=== PATIENT | female | born 1940 | race African-American/Black ===

== ENCOUNTER 2018-02-04 16:04 | Emergency (ER) | payer OTHER ==
[~2018-02-04] VITALS: Ht 165.1 cm; Wt 130.5 kg
[~2018-02-04 16:04] MED LIST: ALBU.5I INH; ALBU0.086 INH; CALC0.5C6 PO; COZA100T PO; FURO20 PO; GLIM4TAB PO; HYDR100T2 PO; LEVEMIR SQ; LEVO500T3 PO; NEBI20 PO; NOVOLOGP2 SQ; POTA-243 PO; PRED20 PO; SIMV20TA PO; ZAFI20TA PO
[2018-02-04 16:07] VITALS: BP 179/93; PULSE 93; RESP 16; TEMP 99.5; O2SAT 96
[2018-02-04] MEDS ORDERED: RANI150T PO (16:27)
[2018-02-04] MEDS ORDERED: TIZA4CAP3 PO (16:27)
[2018-02-04] MEDS ORDERED: CALC0.5C PO (16:27)
[2018-02-04] MEDS ORDERED: ASPI-516 CHEW (16:27)
[2018-02-04] MEDS ORDERED: HYDR-3801 PO (16:27)
[2018-02-04] MEDS ORDERED: FURO40TA PO (16:27)
[2018-02-04] MEDS ORDERED: ZAFI1TAB4 PO (16:27)
[2018-02-04] MEDS ORDERED: VENTAER INH (16:27)
[2018-02-04] MEDS ORDERED: BYST10TA2 PO (16:27)
[2018-02-04] MEDS ORDERED: HYDR50TA94 PO (16:27)
[2018-02-04] MEDS ORDERED: LORA0.5T PO (16:27)
[2018-02-04] MEDS ORDERED: PRAV80TA2 PO (16:27)
[2018-02-04] MEDS ORDERED: NORC5TAB PO (16:27)
[2018-02-04] MEDS ORDERED: LEVEMIR SQ ×2 (16:33→16:35)
--- NOTE | 2018-02-04 16:51 | PD ---
HPI Chief Complaint: Pain: Acute or Chronic Time Seen by Provider: 16:44 Travel History International Travel<30 days: No Contact w/Intl Traveler<30days: No Traveled to known affect area: No History of Present Illness HPI 77-year-old female presents emergency department complaining of right wrist pain for a couple of days. Says that she was getting out of bed pushing herself up when she developed this wrist pain. Patient says that the pain is worse with movement decreases with rest. Pain is nonradiating. She denies additional trauma to the area. Denies numbness or tingling of the wrist. PFSH Past Medical History Hx Anticoagulant Therapy: Yes (BABY ASA DAILY) Asthma: Yes Depression: Yes Cardiovascular Problems: Yes (HTN) High Cholesterol: Yes Congestive Heart Failure: Yes Diabetes: Yes Patient Takes Glucophage: No Diminished Hearing: No GERD: Yes Hypertension: Yes Tetanus Vaccination: > 5 Years Influenza Vaccination: Yes ?: Not Past Surgical History Appendectomy: Yes Section: Yes (x 2) Social History Alcohol Use: No Tobacco Use: No Substance Use: No Allergies-Medications (Allergen,Severity, Reaction): Coded Allergies: codeine (Unverified Allergy, Severe, SWELLING, 02/04/18) penicillin G (Unverified Allergy, Severe, HIVES, 02/04/18) Reported Meds & Prescriptions Reported Meds & Active Scripts Active Gabapentin 100 Mg Cap 100 Mg PO TID 5 Days Reported Levemir Inj (Insulin Detemir) 1,000 unit/ 10 ML Vial 40 Units SQ HS Do not mix with any other Insulin. Levemir Inj (Insulin Detemir) 1,000 unit/ 10 ML Vial 40 Units SQ Do not mix with any other Insulin. Edon (Hydrocodone-Acetaminophen) 5 Mg-325 Mg Tab 1 Tab PO Q6H PRN Tizanidine (Tizanidine HCl) 4 Mg Cap 4 Mg PO TID Lorazepam 0.5 Mg Tab 0.5 Mg PO Q8H PRN Ventolin Hfa 18 GM Inh (Albuterol Sulfate) 90 Mcg/Act Aer 2 Puff INH Q4-6H PRN Hydroxyzine HCl 50 Mg Tab 50 Mg PO QID PRN Furosemide 40 Mg Tab 40 Mg PO DAILY Zafirlukast 20 Mg Tab 20 Mg PO BIDAC Bystolic (Nebivolol) 10 Mg Tab 10 Mg PO BID Aspirin 81 Mg Chew 81 Mg CHEW DAILY Hydralazine (Hydralazine HCl) 100 Mg Tab 100 Mg PO TID Take with meals Ranitidine (Ranitidine HCl) 150 Mg Tab 150 Mg PO DAILY Calcitriol 0.5 Mcg Cap 0.5 Mcg PO DAILY Pravastatin 80 Mg Tab 80 Mg PO HS Review of Systems Except as stated in HPI: all other systems reviewed are Neg Physical Exam Narrative GENERAL: Well-nourished, well-developed patient, in NAD SKIN: Focused skin assessment warm/dry. No rashes or lesions. HEAD: Normocephalic. Atraumatic. EYES: No scleral icterus. No injection or drainage. THROAT: Airway is patent. NECK: Supple, trachea midline. No JVD or lymphadenopathy. No meningismus. CARDIOVASCULAR: Regular rate and rhythm without murmurs, gallops, or rubs. RESPIRATORY: Breath sounds equal bilaterally. No accessory muscle use. No wheezes, rales, or rhonchi MUSCULOSKELETAL: No cyanosis, or edema. Right upper extremity-tenderness to palpation from the right wrist to the fingertips. No obvious deformities. Patient has difficulty with rotation of the forearm secondary to the pain. Neurovascular intact. No obvious deformities. The hand is slightly edematous when compared to the left. No evidence of cellulitis present. BACK: Nontender without obvious deformity. No CVA tenderness. Data Data Last Documented VS Vital Signs Date Time Temp Pulse Resp B/P (MAP) Pulse Ox O2 Delivery O2 Flow Rate FiO2 02/04/18 16:07 99.5 93 16 179/93 (121) 96 Orders Orders Wrist, Complete ([id number]) (02/04/18 ) Support Splint (02/04/18 17:29) Ed Discharge Order (02/04/18 17:35) MDM Medical Decision Making Medical Screen Exam Complete: Yes Emergency Medical Condition: Yes Differential Diagnosis Right wrist contusion, bursitis, cellulitis, fracture, osteonecrosis, avascular necrosis, sprain, strain Narrative Course 77-year-old female presents emergency department complaining of right wrist pain. Based off of history and physical, I suspect that patient has neuralgia versus neuropathy. 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 Ordered x-rays patient says that she was sitting up in her bed when she developed this pain. X-ray without acute process. Patient will be discharged with gabapentin. We will avoid prednisone as she is diabetic and morbidly obese. Advised her to use caution while taking gabapentin as it may cause She should follow-up with a neurologist, hand specialist, and her primary care physician for further evaluation and treatment. Wrist splint applied to reduce her symptoms. Diagnosis Primary Impression: Neuralgia Referrals: Eb Bucio III, MD,Steven Godwin MD PhD Hand Surgeon Neurologist Additional Instructions: Follow-up with a hand specialist as discussed. Take all medication as prescribed. Use caution when taking gabapentin as it may make you feel drowsy. Follow-up with the primary care physician within 2-3 days. Use the wrist splint as needed for pain. Scripts Gabapentin (Gabapentin) 100 Mg Cap 100 MG PO TID for Pain Management for 5 Days, #15 CAP 0 Refills Prov: Peewee Allen MD 02/04/18 Disposition: 01 DISCHARGE HOME Condition: Stable Jessika Cunningham Feb 04, 2018 16:51
--- NOTE | 2018-02-04 17:20 | RADRPT ---
EXAM DATE: 02/04/2018 4:52 PM EDT AGE/SEX: 77 years / Female INDICATIONS: All over right wrist pain, no known injury. CLINICAL DATA: This is the patient's initial encounter. Patient reports that signs and symptoms have been present for 2 days and indicates a pain score of 10/10. MEDICAL/SURGICAL HISTORY: Congestive heart failure. Diabetes mellitus type II. Asthma. None. COMPARISON: No prior exams available for comparison. FINDINGS: Bony structures are intact and in normal alignment. Joints are intact without dislocation or signifi cant arthropathy. Osseous density is normal. Soft tissues are unremarkable. No radiopaque foreign bodies seen. CONCLUSION: No evidence of acute process or significant arthropathy. Electronically signed by: Elliot Morillo MD 02/04/2018 5:19 PM EDT
[2018-02-04] MEDS ORDERED: GABA100C4 PO (17:29)
== END 2018-02-04 17:54 | disposition home or self-care (01) ==
LOC: PHEFT 16:04
DX: M79.2 Neuralgia and neuritis, unspecified (principal); M25.531 Pain in right wrist; E66.01 Morbid (severe) obesity due to excess calories; E78.00 Pure hypercholesterolemia, unspecified; F32.9 Major depressive disorder, single episode, unspecified; E11.9 Type 2 diabetes mellitus without complications; I11.0 Hypertensive heart disease with heart failure; I50.9 Heart failure, unspecified; J45.909 Unspecified asthma, uncomplicated; K21.9 Gastro-esophageal reflux disease without esophagitis; Z79.82 Long term (current) use of aspirin
CPT/HCPCS: 73110; 99283; L3908